=== PATIENT | female | born 1985 | race Caucasian/White ===

== ENCOUNTER 2017-10-20 13:01 | Emergency (ER) | payer SELFPAY ==
[~2017-10-20] VITALS: Ht 170.2 cm; Wt 68.0 kg
[2017-10-20 13:03] VITALS: BP 137/72; PULSE 111; RESP 16; TEMP 98.3
[2017-10-20] MEDS ORDERED: ACETAMINOPHEN 500 MG CPLT PO ONE (13:45)
[2017-10-20 14:04] LABS: BACTERIA, URINE RARE /hpf; BILIRUBIN, URINE NEG (NEG); BLOOD, URINE NEG (NEG); GLUCOSE,URINE NEG (NEG); KETONE, URINE NEG (NEG); NITRITE,URINE NEG (NEG); SQUAMOUS EPITHELIAL CELL URINE 2 /hpf (0-5); URINE COLOR LIGHT-YELLOW (YELLW/STRAW); URINE LEUKOCYTE ESTERASE LARGE (NEG)
[2017-10-20] MEDS ORDERED: NAPR500T2 PO (14:46)
--- NOTE | 2017-10-20 14:46 | PD ---
HPI Chief Complaint: Back/ Neck Pain or Injury Time Seen by Provider: 13:19 Travel History International Travel<30 days: No Contact w/Intl Traveler<30days: No Traveled to known affect area: No History of Present Illness HPI 31-year-old woman who presents emergency department of low back pain. It has been bothering for about 2 weeks now. She has had increased physical activity with increase lifting and core exercises, she also had a history of urinary tract infections in the past. Pain is worse with any movement. She does not recall any specific injury. She also states she has had some increased urination but no real dysuria. Last menstrual period just ended and was not abnormal. Denies any abnormal vaginal discharge. She sexually active with men only, 2 male partners in the past 6 months. No history of IV drug use. History Past Medical History Medical History: Denies Significant Hx Social History Alcohol Use: Yes (daily glass of wine ) Tobacco Use: Yes (1/2 pack ) Allergies-Medications (Allergen,Severity, Reaction): Coded Allergies: No Known Allergies (Unverified , 10/20/17) Review of Systems Except as stated in HPI: all other systems reviewed are Neg Physical Exam Narrative GENERAL: Well-appearing 31-year-old woman, no acute distress. SKIN: Focused skin assessment warm/dry. HEAD: Atraumatic. Normocephalic. EYES: Pupils equal and round. No scleral icterus. No injection or drainage. ENT: No nasal bleeding or discharge. Mucous membranes pink and moist. NECK: Trachea midline. No JVD. CARDIOVASCULAR: Regular rate and rhythm. No murmur appreciated. RESPIRATORY: No accessory muscle use. Clear to auscultation. Breath sounds equal bilaterally. GASTROINTESTINAL: Abdomen soft, non-tender, nondistended. Hepatic and splenic margins not palpable. No CVA tenderness to percussion. MUSCULOSKELETAL: No obvious deformities. No edema. NEUROLOGICAL: Awake and alert. No obvious cranial nerve deficits. Motor grossly within normal limits. Normal speech. PSYCHIATRIC: Appropriate mood and affect; insight and judgment normal. Data Data Last Documented VS Vital Signs Date Time Temp Pulse Resp B/P (MAP) Pulse Ox O2 Delivery O2 Flow Rate FiO2 10/20/17 13:03 98.3 111 16 137/72 (93) Room Air Orders Orders Urinalysis - C+S If Indicated (10/20/17 13:19) Ed Urine Pregnancytest Poc (10/20/17 13:19) Acetaminophen (Tylenol) (10/20/17 13:45) Labs Laboratory Tests Test 10/20/17 13:48 Urine Color LIGHT-YELLOW Urine Turbidity CLEAR Urine pH 6.0 Urine Specific [place] 1.006 Urine Protein NEG mg/dL Urine Glucose (UA) NEG mg/dL Urine Ketones NEG mg/dL Urine Occult Blood NEG Urine Nitrite NEG Urine Bilirubin NEG Urine Urobilinogen LESS THAN 2.0 MG/DL Urine Leukocyte Esterase LARGE Urine RBC 1 /hpf Urine WBC LESS THAN 1 /hpf Urine Squamous Epithelial Cells 2 /hpf Urine Bacteria RARE /hpf Microscopic Urinalysis Comment CULT NOT INDICATED MDM Medical Decision Making Medical Screen Exam Complete: Yes Emergency Medical Condition: Yes Medical Record Reviewed: Yes Differential Diagnosis UTI, back strain or sprain, malignancy, osteo-, renal lithiasis, other Narrative Course Medical decision making appears a 31-year-old emergency room which were low back pain. Seems to be musculoskeletal. Worse with any movement. Urine is negative and no CVA tenderness to percussion. No vaginal discharge or pruritus. Looks otherwise well. Recommend supportive treatment with NSAIDs. Diagnosis Primary Impression: Back pain Additional Instructions: Take Naprosyn as prescribed. Follow with her primary doctor in 2-3 weeks if not completely improved. Return to the emergency department for any fevers, numbness tingling or weakness , worsening pain, or any other new or worsening symptoms. Med/Other Pt SpecificInfo: Prescription(s) given Scripts Naproxen (Naproxen) 500 Mg Tab 500 MG PO BID, #14 TAB 0 Refills Prov: Onel Taylor MD 10/20/17 Disposition: 01 DISCHARGE HOME Condition: Stable Onel Taylor MD Oct 20, 2017 14:46
== END 2017-10-20 14:51 | disposition home or self-care (01) ==
LOC: NEPD 13:01
DX: M54.5 Low back pain (principal); F17.210 Nicotine dependence, cigarettes, uncomplicated
CPT/HCPCS: 81001; 84703; 99283

== ENCOUNTER 2017-12-22 01:34 | Emergency (ER) | payer SELFPAY ==
[~2017-12-22] VITALS: Ht 170.2 cm; Wt 70.0 kg
[~2017-12-22 01:34] MED LIST: NAPR500T2 PO
[2017-12-22 01:44] VITALS: BP 166/106; PULSE 101; RESP 22; TEMP 98.3; O2SAT 100
[2017-12-22] MEDS ORDERED: IBUPROFEN 600 MG TAB PO ONE (02:45)
[2017-12-22] MEDS ORDERED: LIDOCAINE 2%/EPINEPHrine 1:100,000 20ML MDV NERV BLOCK ONE (02:45)
[2017-12-22] MEDS ORDERED: CLINDAMYCIN 150 MG CAP PO ONE (03:15)
[2017-12-22] MEDS ORDERED: LEVOFLOXACIN 750 MG TAB PO ONE (03:15)
[2017-12-22] MEDS ORDERED: CLIN300C5 PO (03:41)
[2017-12-22] MEDS ORDERED: LEVA750T9 PO (03:41)
--- NOTE | 2017-12-22 03:42 | PD ---
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 Pt reports that the pain is localized throbbing pressure in right labia , it is severe and pt is crying in pain , Motrin did not help withthe pain not currnetly on antibiotics . She has no seen a MD for this complaint She has no fever no chills no vaginal discharge . PFSH Past Medical History ?: Not Social History Alcohol Use: Yes (daily glass of wine ) Tobacco Use: Yes (1/2 pack ) Substance Use: No Allergies-Medications (Allergen,Severity, Reaction): Coded Allergies: No Known Allergies (Unverified , 12/22/17) Reported Meds & Prescriptions Reported Meds & Active Scripts Active Ibuprofen 600 Mg Tab 600 Mg PO Q6H PRN Levaquin (Levofloxacin) 750 Mg Tablet 750 Mg PO DAILY Clindamycin (Clindamycin HCl) 300 Mg Cap 300 Mg PO TID Naproxen 500 Mg Tab 500 Mg PO BID Review of Systems Except as stated in HPI: all other systems reviewed are Neg Physical Exam Narrative GENERAL: SKIN: Warm and dry. HEAD: Atraumatic. Normocephalic. EYES: Pupils equal and round. No scleral icterus. No injection or drainage. ENT: No nasal bleeding or discharge. Mucous membranes pink and moist. NECK: Trachea midline. No JVD. CARDIOVASCULAR: Regular rate and rhythm. RESPIRATORY: No accessory muscle use. Clear to auscultation. Breath sounds equal bilaterally. GASTROINTESTINAL: Abdomen soft, non-tender, nondistended. Hepatic and splenic margins not palpable. patient has a large swelling to her labia majora with a Bartholin cyst 5 cm tender tense and in pain MUSCULOSKELETAL: Extremities without clubbing, cyanosis, or edema. No obvious deformities. NEUROLOGICAL: Awake and alert. No obvious cranial nerve deficits. Motor grossly within normal limits. Five out of 5 muscle strength in the arms and legs. Normal speech. PSYCHIATRIC: Appropriate mood and affect; insight and judgment normal. Data Data Last Documented VS Vital Signs Date Time Temp Pulse Resp B/P (MAP) Pulse Ox O2 Delivery O2 Flow Rate FiO2 12/22/17 01:44 98.3 101 22 166/106 (126) 100 Orders Orders Lidocai-Epi 2%-1:100,000 Inj (Xylocaine- (12/22/17 02:45) Ibuprofen (Motrin) (12/22/17 02:45) Levofloxacin (Levaquin) (12/22/17 03:15) Clindamycin (Cleocin) (12/22/17 03:15) Ed Discharge Order (12/22/17 03:47) Wound Culture And Gram Stain (12/22/17 03:55) Gc And Chlamydia Pcr (12/22/17 03:55) Labs Laboratory Tests Test 12/22/17 03:05 Chlamydia trachomatis DNA (PCR) NOT DETECTED Neisseria gonorrhoeae DNA (PCR) NOT DETECTED MDM Medical Decision Making Medical Screen Exam Complete: Yes Emergency Medical Condition: Yes Differential Diagnosis Frontal diagnosis includes abscess versus Bartholin cyst versus Bartholin abscess versus GC chlamydia causing the Bartholin cyst versus normal skin thomas causing a Bartholin cyst Narrative Course Patient is given clindamycin and Levaquin and Motrin and I&D of the Bartholin cyst and warts catheters placed and she is much pus expressed that is sent for culture she is feeling much improved and discharged with clindamycin and Levaquin and a follow-up with [facility] [place] Procedures Procedure Narrative I&D of the Bartholin cyst. I did sterile technique with Betadine preparation injected with Lidocaine 2% epi with 1 cc injected... and with an 11 blade I put a 1 cm incision with much pus expressed and then I am placed a words catheter into incision opening ....then the words catheter was inflated with 5 cc of normal . covered area with a sterile pad pt to return or follow up with [facility] or return to ER in 2 days recheck Diagnosis Primary Impression: Bartholin cyst [facility] Patient Instructions: Excision of a Bartholin's Cyst (DC), General Instructions Additional Instructions: Leave this catheter that is placed into the Bartholin cyst in place for 2 days. You may wear a pad for drainage that will come out. Take the antibiotics for 10 days. Follow-up in [facility]. The address and phone number on your discharge papers. If you encounter any complications return to the ER Scripts Ibuprofen (Ibuprofen) 600 Mg Tab 600 MG PO Q6H Y for Pain/Inflammation, #40 TAB 0 Refills Prov: Humble Howell MD 12/22/17 Levofloxacin (Levaquin) 750 Mg Tablet 750 MG PO DAILY for Infection, #10 TAB 0 Refills Prov: Humble Howell MD 12/22/17 Clindamycin (Clindamycin) 300 Mg Cap 300 MG PO TID for Infection, #30 CAP 0 Refills Prov: Humble Howell MD 12/22/17 Disposition: 01 DISCHARGE HOME Condition: Good Humble Howell MD Dec 22, 2017 03:42
[2017-12-22] MEDS ORDERED: IBUP-232 PO (03:54)
== END 2017-12-22 04:35 | disposition home or self-care (01) ==
LOC: NEPC 01:34
DX: N75.0 Cyst of Bartholin's gland (principal); Z72.0 Tobacco use
CPT/HCPCS: 56420; 87070; 87185; 87491; 87591

== ENCOUNTER 2017-12-26 08:38 | Emergency (ER) | payer SELFPAY ==
[~2017-12-26] VITALS: Ht 170.2 cm; Wt 72.5 kg
[~2017-12-26 08:38] MED LIST changes: +CLIN300C5 PO; +IBUP-232 PO; +LEVA750T9 PO
[2017-12-26 08:44] VITALS: BP 135/72; PULSE 87; RESP 16; TEMP 98; O2SAT 99
--- NOTE | 2017-12-26 09:59 | PD ---
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 She was here 4 days ago and her Bartholin's cyst was incised and drained and were catheter was placed. She has been taking levofloxacin and clindamycin as prescribed. She denies fever, vomiting. She tried to get in with [facility] for removal but they have no availability. Reports improvement in symptoms. Rates pain 4/10. Has been taking ibuprofen for symptom management. No known aggravating or relieving factors. Primary care provider is [facility]. No known allergies. Denies significant past medical history. Has no other medical complaints. No other modifying factors or associated signs and symptoms. PFSH Past Medical History Influenza Vaccination: No ?: Not Social History Alcohol Use: Yes (daily glass of wine ) Tobacco Use: Yes (1/2 pack ) Substance Use: No Allergies-Medications (Allergen,Severity, Reaction): Coded Allergies: No Known Allergies (Unverified , 12/26/17) Reported Meds & Prescriptions Reported Meds & Active Scripts Active Ibuprofen 600 Mg Tab 600 Mg PO Q6H PRN Levaquin (Levofloxacin) 750 Mg Tablet 750 Mg PO DAILY Clindamycin (Clindamycin HCl) 300 Mg Cap 300 Mg PO TID Naproxen 500 Mg Tab 500 Mg PO BID Review of Systems Except as stated in HPI: all other systems reviewed are Neg Physical Exam Narrative GENERAL: Well-nourished, well-developed female patient, in no acute distress; afebrile, nontoxic-appearing SKIN: Warm and dry. HEAD: Atraumatic. Normocephalic. EYES: Pupils equal and round. No scleral icterus. No injection or drainage. ENT: Mucous membranes pink and moist. NECK: Trachea midline. No lymphadenopathy. CARDIOVASCULAR: Regular rate RESPIRATORY: No accessory muscle use. GASTROINTESTINAL: Flat. PELVIC: Exam done in the presence of a nurse. Word catheter noted; no erythema , edema, drainage noted. MUSCULOSKELETAL: No obvious deformities. No clubbing. No cyanosis. No edema. NEUROLOGICAL: Awake and alert. No obvious cranial nerve deficits. Motor grossly within normal limits. Normal speech. PSYCHIATRIC: Appropriate mood and affect; insight and judgment normal. Data Data Last Documented VS Vital Signs Date Time Temp Pulse Resp B/P (MAP) Pulse Ox O2 Delivery O2 Flow Rate FiO2 12/26/17 09:27 Room Air 12/26/17 08:44 98.0 87 16 135/72 (93) 99 Orders Orders Ed Discharge Order (12/26/17 10:02) MDM Medical Decision Making Medical Screen Exam Complete: Yes Emergency Medical Condition: Yes Medical Record Reviewed: Yes Differential Diagnosis Encounter for diagnostic medical sonographer removal, encounter for abscess recheck, medical clearance Narrative Course 32-year-old female presents for Word catheter removal after having Bartholin's cyst incised and drained 4 days ago. I discussed the catheter should be in place for up to 4 weeks and patient was provided information from [facility] to verify this. She continued to request the catheter be removed because she was concerned of infection developing around the catheter. The catheter was removed per the patient's request. Instructed patient to follow-up with gynecology. Instructed patient to follow up with primary care provider. Patient verbalizes understanding and agreement with treatment plan. Patient is medically cleared and stable for discharge. Discussed reasons to return to the emergency department. Patient agrees with treatment plan. The patients vital signs are stable and the patient is stable for outpatient follow-up and treatment. Patient discharged home, stable and in no acute distress. Procedures Procedure Narrative Word catheter removal: A 10 mL syringe was used to drain the catheter and the catheter was removed. Patient tolerated well. Diagnosis Primary Impression: Encounter for diagnostic medical sonographer removal Additional Impression: Encounter for recheck of abscess following incision and drainage Referrals: [facility] Disease Intervention Specialist Primary Care Physician Patient Instructions: Bartholin Cyst (ED), General Instructions Additional Instructions: Ibuprofen or Tylenol as directed and as needed for pain and inflammation Follow-up with replenisher Follow-up with primary care provider Return to the emergency department immediately with worsening of symptoms Med/Other Pt SpecificInfo: No Change to Meds, No Meds Exist/No RX given Disposition: 01 DISCHARGE HOME Condition: Stable CordeliaSonia camachojanice MILLS Dec 26, 2017 09:59
== END 2017-12-26 10:42 | disposition home or self-care (01) ==
LOC: NEPD 08:38
DX: Z46.89 Encounter for fitting and adjustment of other specified devices (principal)
CPT/HCPCS: 99281